=== PATIENT | female | born 1960 ===

== ENCOUNTER 2017-11-22 08:36 | Emergency (ER) | payer OTHER ==
[2017-11-22 08:45] VITALS: O2SAT 98
--- NOTE | 2017-11-22 09:18 | C.PDOC ---
History Of Present Illness 57 yo femle , no prior hx , presents with left lower back pain x 4 days. no known trauma. contrary to triage pt denies any urinary changes. no fevers, no other complaints pain came on w/o inciting factor. Time Seen by Provider: 11/22/17 09:10 Chief Complaint (Nursing): Back Pain Past Medical History Reviewed: Historical Data, Nursing Documentation, Vital Signs Vital Signs: Last Vital Signs Temp 97.6 F 11/22/17 11:24 Pulse 60 11/22/17 11:24 Resp 16 11/22/17 11:24 BP 89/60 L 11/22/17 11:24 Pulse Ox 98 11/22/17 11:45 Family History: States: Unknown Family Hx - Social History Hx Alcohol Use: No Hx Substance Use: No - Immunization History Hx Tetanus Toxoid Vaccination: No Hx Influenza Vaccination: No Hx Pneumococcal Vaccination: No Review Of Systems Musculoskeletal: Positive for: Back Pain Physical Exam - Physical Exam Appears: Well, No Acute Distress Skin: Normal Color, Warm, Dry Eye(s): bilateral: Normal Inspection, PERRL, EOMI Nose: Normal Throat: Normal Neck: Normal Cardiovascular: Rhythm Regular Respiratory: Normal Breath Sounds Gastrointestinal/Abdominal: Normal Exam, Soft, No Tenderness, No Guarding, No Rebound Back: Normal Inspection, No Vertebral Tenderness (no lumbar ttp, stepoff), Paraspinal Tenderness (paralumbar) Extremity: Normal ROM Neurological/Psych: Oriented x3, Normal Speech, Normal Motor ED Course And Treatment - Laboratory Results Result Diagrams: 11/22/17 11:00 11/22/17 11:00 O2 Sat by Pulse Oximetry: 98 Medical Decision Making Medical Decision Making: atraumatic back flank pain, ua with blood - ct pendign ct shows no e/o of stone, labs unremakralbe. pain improved. notified of incidental findings on ct advise outpt fu. Disposition - Disposition Referrals: [facility] [Outside] [facility] [Outside] Disposition: HOME/ ROUTINE Disposition Time: 11:45 Condition: STABLE Additional Instructions: please follow up with your doctor. return to er with worsening symptoms or concerns. please discuss results of your ct with your doctor/clinic. Prescriptions: Cyclobenzaprine [Cyclobenzaprine HCl] 10 mg PO DAILY PRN #10 PRN Reason: Muscle Spasm Instructions: Low Back Pain (DC) Forms: [employer] (Tajik) - Clinical Impression Clinical Impression: Low back pain
[2017-11-22 09:45] LABS: SQUAMOUS EPITHIAL 5 /hpf (0-5); URINE BILIRUBIN NEGATIVE (NEGATIVE); URINE BLOOD 1+ (NEGATIVE); URINE CLARITY Hazy (Clear); URINE COLOR Yellow (YELLOW); URINE GLUCOSE (UA) NORMAL (Normal); URINE LEUKOCYTE ESTERASE NEG Leu/uL (Negative); URINE PROTEIN NEGATIVE (NEGATIVE); URINE UROBILINOGEN NORMAL mg/dL (0.2-1.0)
[2017-11-22 11:12] LABS: BASO # 0.1 K/uL (0.0-0.2); BASO % 0.7 % (0.0-2.0); EOS # 0.3 K/uL (0.0-0.7); EOS % 4.5 % (0.0-4.0); HEMOGLOBIN 12.4 g/dL (11.0-16.0); LYMPH # 2.4 K/uL (1.0-4.3); MEAN CELL VOLUME 88.9 fL (81.0-99.0); MEAN CORPUSCULAR HEMOGLOBIN 29.8 pg (27.0-31.0); MEAN CORPUSCULAR HGB CONC 33.5 g/dL (33.0-37.0); MEAN PLATELET VOLUME 8.9 fL (7.2-11.7); MONO # 0.7 K/uL (0.0-0.8); MONO % 9.3 % (0.0-10.0); NEUT % 53.5 % (50.0-75.0); RBC 4.15 Mil/uL (3.80-5.20); RED CELL DISTRIBUTION WIDTH 14.3 % (11.5-14.5); WHITE BLOOD COUNT 7.5 K/uL (4.8-10.8)
[2017-11-22 11:22] LABS: ALBUMIN 3.8 g/dL (3.5-5.0); ALT/SGPT 14 U/L (9-52); AST/SGOT 29 U/L (14-36); BLOOD UREA NITROGEN 18 mg/dL (7-17); CALCIUM 8.6 mg/dl (8.6-10.4); GFR AFRICAN-AMERICAN > 60; GFR NON-AFRICAN AMERICAN > 60
[2017-11-22 11:25] VITALS: BP 89/60; PULSE 60; RESP 16; TEMP 97.6
--- NOTE | 2017-11-22 11:26 | CT ---
PROCEDURE: CT Abdomen and Pelvis without intravenous contrast HISTORY: left flank pain COMPARISON: None. TECHNIQUE: Without contrast.. Contrast Dose: 0 Radiation dose: Total exam DLP = 343.20 mGy-cm. This CT exam was performed using one or more of the following dose reduction techniques: Automated exposure control, adjustment of the mA and/or kV according to patient size, and/or use of iterative reconstruction technique. FINDINGS: LOWER THORAX: Unremarkable. LIVER: Unremarkable. No gross lesion or ductal dilatation. GALLBLADDER AND BILE DUCTS: Unremarkable. PANCREAS: Unremarkable. No gross lesion or ductal dilatation. SPLEEN: Unremarkable. ADRENALS: Unremarkable. No mass. KIDNEYS AND URETERS: 2 mm nonobstructing left upper pole renal calculus. No right renal calculus. No mass or hydronephrosis. No hydroureter or ureteral calculus. VASCULATURE: Unremarkable. No aortic aneurysm. BOWEL: Unremarkable. No obstruction. No gross mural thickening. APPENDIX: Unremarkable. Normal appendix. PERITONEUM: Unremarkable. No free fluid. No free air. LYMPH NODES: Shotty subcentimeter lymph nodes are seen medial to the cecum and ascending colon, nonspecific. This does not correspond to the location of the patient's discomfort currently. No retroperitoneal or pelvic lymphadenopathy is seen. BLADDER: Unremarkable. REPRODUCTIVE: Unremarkable uterus. BONES: No acute fracture. OTHER FINDINGS: None. IMPRESSION: No acute abnormality. Nonobstructing 2 mm left upper pole renal calculus. Incidental shotty subcentimeter lymph nodes medial to the cecum and ascending colon, nonspecific. This does not correspond to the location of the patient's current discomfort but may be seen in association with mesenteric adenitis. No other significant abnormality.
== END 2017-11-22 11:39 | disposition home or self-care (01) ==
LOC: C.ER 08:36
DX: M54.5 Low back pain (principal)

== ENCOUNTER 2017-11-27 16:21 | Emergency (ER) | payer OTHER ==
[2017-11-27 16:45] VITALS: O2SAT 99; BMI 23.8
[2017-11-27] MEDS ORDERED: Lidocaine 5% Patch TD STA (17:05)
--- NOTE | 2017-11-27 17:06 | C.PDOC ---
History Of Present Illness 57 year old female presents to the emergency department for re-evaluation of back pain. She reports the pain developed over the past five days, and is localized over the left lower back. Patient reports that it is worse with movement. She states she was seen here a few days ago, and had bloodwork as well as a CT scan completed with no significant findings. Patient was given ibuprofen at that time without improvement, therefore she presents today. Patient denies fevers, chills, abdominal pain, nausea, vomiting, UTI, or incontinence. Time Seen by Provider: 11/27/17 16:52 Chief Complaint (Nursing): Back Pain History Per: Patient History/Exam Limitations: no limitations Onset/Duration Of Symptoms: Days (5) Current Symptoms Are (Timing): Still Present Quality Of Discomfort: "Pain" Previous Symptoms: Back Pain Associated Symptoms: denies: Incontinence Exacerbating Factor(s): Movement Past Medical History Reviewed: Historical Data, Nursing Documentation, Vital Signs Vital Signs: Last Vital Signs Temp 98.5 F 11/27/17 16:38 Pulse 89 11/27/17 16:38 Resp 20 11/27/17 16:38 BP 115/74 11/27/17 16:38 Pulse Ox 99 11/27/17 17:16 - Medical History PMH: No Chronic Diseases Surgical History: No Surg Hx Family History: States: No Known Family Hx - Social History Hx Alcohol Use: No Hx Substance Use: No - Immunization History Hx Tetanus Toxoid Vaccination: No Hx Influenza Vaccination: No Hx Pneumococcal Vaccination: No Review Of Systems Except As Marked, All Systems Reviewed And Found Negative. Constitutional: Negative for: Fever, Chills Gastrointestinal: Negative for: Nausea, Vomiting, Abdominal Pain Genitourinary: Negative for: Incontinence, Other (UTI) Musculoskeletal: Positive for: Back Pain Physical Exam - Physical Exam Appears: Well, Toxic, No Acute Distress Skin: Normal Color, Warm, Dry, No Rash, No Ecchymosis Head: Normacephalic Eye(s): bilateral: PERRL Throat: No Erythema Neck: Trachea Midline, Supple Cardiovascular: Rhythm Regular Respiratory: No Decreased Breath Sounds, No Accessory Muscle Use, No Stridor, No Wheezing Gastrointestinal/Abdominal: Soft, No Tenderness, No Distention, No Guarding Back: No CVA Tenderness, No Vertebral Tenderness, Muscle Spasm (Left lumbar), Paraspinal Tenderness (Left lumbar) Extremity: Normal ROM, No Pedal Edema, No Deformity, No Swelling Neurological/Psych: Oriented x3, Normal Speech, Normal Motor, Normal Sensation, Normal Reflexes ED Course And Treatment O2 Sat by Pulse Oximetry: 99 (RA) Pulse Ox Interpretation: Normal - CT Scan/US CT abd/pelvis 11/22/17 Other Rad Studies (CT/US): Radiology Report Reviewed CT/US Interpretation: IMPRESSION: No acute abnormality. Nonobstructing 2 mm left upper pole renal calculus. Incidental shotty subcentimeter lymph nodes medial to the cecum and ascending colon, nonspecific. This does not correspond to the location of the patient's current discomfort but may be seen in association with mesenteric adenitis. No other significant abnormality. Progress Note: On re-evaluation, pt is afebrile, hemodynamicaly stable. Non- toxic. Ambulatory in ED with stable gait. ENT: no acute findings. neck: Supple. Abd: benign, (-) guarding, (-) rebound. back: (-) CVA tenderness. Neurologicaly intact. UA results review and appears normal. CT abd/pelvis review from previous visit (+) 2mm Left renal non-obstructive stone noted. Pt has clinical findings c/w Left lumbar strain r/o radiculopathy, hx of left renal stone. Pt advised, ref. to f/u with PMD, Urology in 1-2 days for re- eval. return to ED if any worsening or new changes. Disposition Counseled Patient/Family Regarding: Diagnosis, Need For Followup, Rx Given - Disposition Referrals: Valencia Campbell APN [Advanced Practice Nurse] - Disposition: HOME/ ROUTINE Disposition Time: 17:30 Condition: STABLE Additional Instructions: Encourage fluids Urine strain Take medication as prescribed Avoid any type of physical activity , bending, lifting heavy weight for 1-2 weeks Follow up with PMD in 2-3 days for re-evaluation. Return to ED if nay worsening or new changes. Prescriptions: Gabapentin [Neurontin] 300 mg PO BID #14 cap Methocarbamol [Robaxin] 500 mg PO TID #14 tab Prednisone [Deltasone] 40 mg PO DAILY #6 tablet Instructions: Low Back Pain (DC), Radiculopathy (DC) Forms: [employer] (Citizen Of [place]), Work Excuse Print Language: ROMANIAN - Clinical Impression Clinical Impression: Lumbar sprain, Radiculopathy - PA / HURL SHAKER / Resident Statement MD/DO has reviewed & agrees with the documentation as recorded. - Scribe Statement The provider has reviewed the documentation as recorded by the Scribe (Kurt Null) All medical record entries made by the Scribe were at my direction and personally dictated by me. I have reviewed the chart and agree that the record accurately reflects my personal performance of the history, physical exam, medical decision making, and the department course for this patient. I have also personally directed, reviewed, and agree with the discharge instructions and disposition.
[2017-11-27] MEDS ORDERED: Lidocaine 5% Patch TD ONE (17:24)
[2017-11-27 17:34] LABS: URINE BILIRUBIN NEGATIVE (NEGATIVE); URINE BLOOD 2+ (NEGATIVE); URINE CLARITY Clear (Clear); URINE COLOR Yellow (YELLOW); URINE GLUCOSE (UA) NORMAL (Normal); URINE LEUKOCYTE ESTERASE NEG Leu/uL (Negative); URINE PROTEIN NEGATIVE (NEGATIVE); URINE UROBILINOGEN NORMAL mg/dL (0.2-1.0)
[2017-11-27 18:01] VITALS: BP 99/65; PULSE 78; RESP 16; TEMP 98.1
== END 2017-11-27 18:09 | disposition home or self-care (01) ==
LOC: C.ER 16:21
DX: M54.16 Radiculopathy, lumbar region (principal); S33.5XXA Sprain of ligaments of lumbar spine, initial encounter; X58.XXXA Exposure to other specified factors, initial encounter; Y92.9 Unspecified place or not applicable

== ENCOUNTER 2018-02-24 21:16 | Emergency (ER) | payer OTHER ==
[2018-02-24 21:17] VITALS: BMI 23.8
[2018-02-24 21:31] VITALS: TEMP 99.3
[2018-02-24 22:08] VITALS: BP 122/69; PULSE 68; RESP 20; O2SAT 100
--- NOTE | 2018-02-24 23:51 | C.PDOC ---
History Of Present Illness 57 y/o female comes in complaining of left sciatic pain, ongoing for some time now. No recent fall or trauma. Reports she has been taking gabapentin with some relief. Patient also feels that her musculature is tight, and has taken muscle relaxants in the past with relief. She is currently scheduled to see her PMD next week. Otherwise patient denies bowel/bladder dysfunction. No saddle anesthesia. Time Seen by Provider: 02/24/18 21:45 Chief Complaint (Nursing): Back Pain History Per: Patient History/Exam Limitations: no limitations Onset/Duration Of Symptoms: Days Current Symptoms Are (Timing): Still Present Past Medical History Reviewed: Historical Data, Nursing Documentation, Vital Signs Vital Signs: Last Vital Signs Temp 99.3 F 02/24/18 21:28 Pulse 68 02/24/18 22:07 Resp 20 02/24/18 22:07 BP 122/69 02/24/18 22:07 Pulse Ox 100 02/24/18 23:58 - Medical History Other PMH: Sciatica Family History: States: Unknown Family Hx - Social History Hx Alcohol Use: Yes Hx Substance Use: No - Immunization History Hx Tetanus Toxoid Vaccination: No Hx Influenza Vaccination: No Hx Pneumococcal Vaccination: No Review Of Systems Constitutional: Negative for: Fever, Chills Genitourinary: Negative for: Dysuria, Incontinence Musculoskeletal: Positive for: Back Pain, Leg Pain Neurological: Negative for: Weakness, Numbness Physical Exam - Physical Exam Appears: Well, Non-toxic, No Acute Distress Skin: Normal Color, Warm, Dry Head: Atraumatic, Normacephalic Eye(s): bilateral: Normal Inspection, PERRL, EOMI Nose: Normal Oral Mucosa: Moist Neck: Normal ROM, Supple Chest: Symmetrical Cardiovascular: Rhythm Regular, No Murmur Respiratory: Normal Breath Sounds, No Rales, No Rhonchi, No Wheezing Gastrointestinal/Abdominal: Soft, No Tenderness Back: Normal Inspection, No Vertebral Tenderness, No Decreased ROM, No Straight Leg Raising Extremity: Bilateral: Atraumatic, Normal Color And Temperature, Normal ROM ( with FROM of lower extremities) Pulses: Left Dorsalis Pedis: Normal, Right Dorsalis Pedis: Normal Neurological/Psych: Oriented x3, Normal Speech, Normal Motor, Normal Sensation, Other (No focal deficits) ED Course And Treatment O2 Sat by Pulse Oximetry: 100 (RA) Pulse Ox Interpretation: Normal Medical Decision Making Medical Decision Making: Impression: Sciatica Plan: --Flexeril 10 mg PO --Motrin 600 mg PO Patient is medically stable, and will be discharged home with prescriptions for Flexeril and Motrin. Advised to follow up with her PMD as scheduled for further evaluation. Return to the ER for any new or worsening symptoms. Disposition Counseled Patient/Family Regarding: Diagnosis, Need For Followup, Rx Given - [facility] - Disposition: HOME/ ROUTINE Disposition Time: 21:50 Condition: GOOD Additional Instructions: YARED SÁNCHEZ, thank you for letting us take care of you today. Your provider was Dustin Mancera DO. The emergency medical care you received today was directed at your acute symptoms. If you were prescribed any medication , please fill it and take as directed. It may take several days for your symptoms to resolve. Return to the Emergency Department if your symptoms worsen , do not improve, or if you have any other problems. Please contact your doctor or call one of the physicians/clinics you have been referred to that are listed on the Patient Visit Information form that is included in your discharge packet. Bring any paperwork you were given at discharge with you along with any medications you are taking to your follow up visit. Our treatment cannot replace ongoing medical care by a primary care provider outside of the emergency department. Thank you for allowing the [facility] team to be part of your care today. Follow up with your primary care doctor in 3-4 days for re-evaluation and further management. YARED SÁNCHEZ, eleni por dejarnos atenderlo hoy. Jimenez proveedor fue Dustin Mancera DO. La atencin mdica de emergencia que recibi hoy estaba dirigida a arlet sntomas agudos. Si le prescribieron algn medicamento, llnelo y tome segn las indicaciones. Arlet sntomas pueden tardar varios lee en resolverse. Regrese al Departamento de Emergencia si arlet sntomas empeoran, no mejoran o si tiene algn otro problema. Comunquese con jimenez mdico o llame a kofi de los mdicos / clnicas a los que gama sido referido que figura en el formulario de Informacin de visita del paciente que se incluye en jimenez paquete de moshe. Traiga todos los documentos que recibi al momento del moshe junto con los medicamentos que est tomando en jimenez visita de seguimiento. Nuestro tratamiento no puede reemplazar la atencin mdica en curso por un proveedor de atencin primaria fuera del departamento de emergencia. Eleni por permitir que el equipo de [facility] sea parte de jimenez cuidado hoy. Maggie un seguimiento con jimenez mdico de atencin primaria en 3-4 lee para linda nueva evaluacin y linda administracin posterior. Prescriptions: Cyclobenzaprine [Cyclobenzaprine HCl] 10 mg PO Q8 PRN #20 tab PRN Reason: Muscle Spasm Ibuprofen [Motrin] 600 mg PO Q6 PRN #20 tab PRN Reason: Pain, Moderate (4-7) Instructions: Sciatica (DC) Forms: Gen Discharge Inst Italian, [employer] (Italian) Print Language: PASHTO - POA Present On Arrival: None - Clinical Impression Clinical Impression: Sciatica - Scribe Statement The provider has reviewed the documentation as recorded by the Scribe (Chioma Aquino) Provider Attestation: All medical record entries made by the Scribe were at my direction and personally dictated by me. I have reviewed the chart and agree that the record accurately reflects my personal performance of the history, physical exam, medical decision making, and the department course for this patient. I have also personally directed, reviewed, and agree with the discharge instructions and disposition.
== END 2018-02-24 22:07 | disposition home or self-care (01) ==
LOC: C.ER 21:16
DX: M54.32 Sciatica, left side (principal)